=== PATIENT | male | born 1985 | race Caucasian/White ===

== ENCOUNTER 2016-03-04 15:57 | Emergency (ER) | payer SELFPAY ==
[2016-03-04 16:13] VITALS: BP 127/75
--- NOTE | 2016-03-04 17:31 | ERNOTE ---
Lower Extremity HPI - Narrative Date of Service: 03/04/16 - General Lower Extremities Pain: ankle: right Time Seen by Provider: 03/04/16 17:04 Source: patient Exam Limitations: no limitations - Immun/Allergies/Home Medications Immunizations: IMMUNIZATION HX Immunizations Up to Date Yes History of Influenza Vaccine No Hx Pneumococcal Vaccination No Allergies/Adverse Reactions: Allergies Allergy/AdvReac Type Severity Reaction Status Date / Time No Known Allergies Allergy Unverified 03/04/16 16:13 Home Medications: HOME MEDICATIONS NK [No Home Medication] 03/04/16 [Last Taken Unknown] - History of Present Illness Narrative: Pt. comes in with c/o R lateral ankle pain after he tripped and rolled his R ankle. Pt. denies any alleviating factors despite using ice for the pain and swelling. Pt. states that weight bearing exacerbates the pain. Pt. denies any numbness or tingling. Review of Systems - Review of Systems Constitutional: Present: no symptoms reported. Absent: recent illness, fever, chills, fatigue, malaise EYE: Present: no symptoms reported ENT: Present: no symptoms reported Respiratory: Present: no symptoms reported. Absent: shortness of breath, cough , wheezing Cardiology: Present: no symptoms reported. Absent: chest pain, palpitations, edema Gastrointestinal/Abdominal: Present: no symptoms reported Genitourinary: Present: no symptoms reported Musculoskeletal: Present: no symptoms reported, joint pain - R lateral ankle Skin: Present: no symptoms reported Neurological: Present: no symptoms reported. Absent: headache, dizziness/light- headedness, numbness, tingling All Other Systems: All systems neg except as marked - Patient's Past Medical History Patient History - Medical: No pertinent hx Patient History - Cancer: No Hx of Cancer Patient History - Surgical Procedures: No surgical history - Social History Living Situations: home Smoking Status: Never smoker Alcohol Use: none Drug Use: none Physical Exam - Physical Exam General Appearance: Present: wd/wn, alert, no apparent distress Eye Exam: Normal inspection: bilateral, PERRL: bilateral, EOMI: bilateral Respiratory: Present: no respiratory distress, normal breath sounds, no accessory muscle use, chest nontender, lungs clear Cardiovascular/Chest: Present: regular rate, rhythm, no murmur, normal peripheral pulses Back Exam: Present: normal inspection, normal range of motion, no CVA tenderness , no vertebral tenderness Extremity Exam: Present: no edema, decreased range of motion, joint swelling - R ankle, other - tender over lateral fibular Neurological Exam: Present: alert, oriented, normal mood/affect, no motor/ sensory deficits, 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 Vital Signs: Vital Signs 03/04/16 16:09 Temperature 36.6 C Pulse Rate 68 Respiratory 16 Rate Blood Pressure 127/75 O2 Sat by Pulse 99 Oximetry - X-Ray X-Ray #1 X-Ray: ankle Interpretation: Reviewed by me X-ray Comments: old fracture of the malleolus not where pt. has pain - Progress/Reassessment Chief Complaint: Ankle Injury/ Pain Progress:: Improved Departure Clinical Impression: Ankle sprain Qualifiers: Encounter type: initial encounter Involved ligament of ankle: calcaneofibular ligament Laterality: right Qualified Code(s): S93.411A - Sprain of calcaneofibular ligament of right ankle, initial encounter - Departure Disposition: Home self-care Condition: Good Instructions: RICE for Routine Care of Injuries, [id number] Additional Instructions: Please follow up with orthopedics doctor in 7-10 days if not improved. No weight bearing for 1 week. Referrals: Adam Anderson MD [Staff Physician] -
== END 2016-03-04 17:37 | disposition home or self-care (01) ==
LOC: ER 15:57
DX: S93.411A Sprain of calcaneofibular ligament of right ankle, initial encounter (principal); W01.0XXA Fall on same level from slipping, tripping and stumbling without subsequent striking against object, initial encounter

== ENCOUNTER 2016-04-07 22:09 | Emergency (ER) | payer SELFPAY ==
[2016-04-07 23:58] LABS: Hematocrit 43.7 % (42.0-52.0); Hemoglobin 14.5 gm/dL (13.5-18.0); Mean Cell Volume 83.9 fl (78-100); Mean Corpuscular Hemoglobin 27.8 pg (27-31); Mean Corpuscular Hgb Conc 33.2 g/dl (32-36); Mean Platelet Volume 9.8 fl (6.0-9.5); Neutrophil % 66.3 % (42-75.0); Platelet Count 300 K/mm3 (150-450); Red Blood Count 5.21 M/mm3 (4.7-6.0); Red Cell Distribution Width 12.5 % (11.5-14.0); White Blood Count 12.1 K/mm3 (4.0-10.5)
[2016-04-08 00:11] LABS: CRP 0.6 mg/dL (0.0-0.9); Uric Acid 7.4 mg/dL (2.6-7.2)
--- NOTE | 2016-04-08 00:20 | ERNOTE ---
Lower Extremity HPI - Narrative Date of Service: 04/08/16 - General Time Seen by Provider: 04/07/16 23:35 Source: patient Exam Limitations: no limitations - Immun/Allergies/Home Medications Immunizations: IMMUNIZATION HX Immunizations Up to Date Yes History of Influenza Vaccine No Hx Pneumococcal Vaccination No Allergies/Adverse Reactions: Allergies Allergy/AdvReac Type Severity Reaction Status Date / Time No Known Allergies Allergy Unverified 03/04/16 16:13 Home Medications: HOME MEDICATIONS Colchicine [Colcrys] 0.6 mg PO DAILY #10 tablet 04/08/16 [Last Taken Unknown] Indomethacin [Indocin] 50 mg PO TID #10 tab 04/08/16 [Last Taken Unknown] - History of Present Illness Narrative: swelling and redness and burning pain in left foot today Review of Systems - Review of Systems Constitutional: Present: no symptoms reported EYE: Present: no symptoms reported ENT: Present: no symptoms reported Respiratory: Present: no symptoms reported Cardiology: Present: no symptoms reported Musculoskeletal: Present: See HPI - Patient's Past Medical History Patient History - Medical: No pertinent hx Patient History - Cardiac/Respiratory: No pertinent hx Patient History - Cancer: No Hx of Cancer Patient History - Surgical Procedures: No surgical history Patient History - Other: None - Social History Living Situations: home Abuse History: No History of abuse Psych History: No pertinent hx Smoking Status: Former smoker Have you smoked in the past 12 months: No Do you dip or chew tobacco: No Alcohol Use: none Drug Use: meth - Immunizations Immunizations Up to Date: Yes Hx Pneumococcal Vaccination: No History of Influenza Vaccine: No Physical Exam - Physical Exam General Appearance: Present: wd/wn, alert, no apparent distress Respiratory: Present: no respiratory distress, normal breath sounds, no accessory muscle use, chest nontender Cardiovascular/Chest: Present: regular rate, rhythm, no murmur, normal peripheral pulses Extremity Exam: Present: other - The left foot is swollen and tender, red and hot to touch in dorsum of foot in medial aspect. No open lesions noted. Neurological Exam: Present: alert, normal mood/affect ED Progress - Results and Orders Patient's Lab Results:: I have reviewed the patient's lab results. - Vital Signs Patient's Vital Signs:: I have reviewed the patient's vital signs. Vital Signs: Vital Signs 04/07/16 04/07/16 22:29 23:15 Temperature 36.8 C 36.5 C Pulse Rate 101 H 78 Respiratory 18 20 Rate Blood Pressure 148/84 135/56 O2 Sat by Pulse 99 97 Oximetry - Progress/Reassessment Chief Complaint: Lower Extremity Pain/ Injury Plan - Plan Plan: Uric acid is elevated. pt has Gout Departure Clinical Impression: Gout Qualifiers: Gout site: foot Gout etiology: unspecified cause Laterality: left Chronicity: acute Qualified Code(s): M10.9 - Gout, unspecified - Departure Disposition: Home self-care Condition: Fair Instructions: Low-Purine Diet Prescriptions: Colchicine [Colcrys] 0.6 mg PO DAILY #10 tablet Indomethacin [Indocin] 50 mg PO TID #10 tab
[2016-04-08] MEDS ORDERED: COLCHICINE 0.6 MG TABLET PO ONE (00:22)
[2016-04-08] MEDS ORDERED: NAPROXEN SODIUM 550 MG TABLET PO ONE (00:23)
[2016-04-08] MEDS ORDERED: NAPROXEN SODIUM 550 MG TABLET ONE ×2 (00:24→00:29)
[2016-04-08] MEDS ORDERED: COLCHICINE 0.6 MG TABLET ONE ×2 (00:24→00:29)
[2016-04-08 00:45] VITALS: BP 136/70
== END 2016-04-08 00:30 | disposition home or self-care (01) ==
LOC: ER 22:09
DX: M10.9 Gout, unspecified (principal); Z87.891 Personal history of nicotine dependence

== ENCOUNTER 2016-06-14 10:28 | Emergency (ER) | payer SELFPAY ==
[2016-06-14] MEDS ORDERED: KETOROLAC TROMETHAMINE 60 MG/2 ML VIAL IM ONE ×2 (11:25→11:34)
--- NOTE | 2016-06-14 11:28 | ERNOTE ---
Lower Extremity HPI - Narrative Date of Service: 06/14/16 - General Lower Extremities Pain: foot: left, ankle: left Time Seen by Provider: 06/14/16 11:18 Source: patient, old records Exam Limitations: no limitations - Immun/Allergies/Home Medications Immunizations: IMMUNIZATION HX Immunizations Up to Date Yes History of Influenza Vaccine No Hx Pneumococcal Vaccination No Allergies/Adverse Reactions: Allergies Allergy/AdvReac Type Severity Reaction Status Date / Time No Known Allergies Allergy Unverified 03/04/16 16:13 Home Medications: HOME MEDICATIONS Colchicine 0.6 mg PO DAILY #3 capsule 06/14/16 [Last Taken Unknown] Indomethacin 50 mg PO TID #11 cap 06/14/16 [Last Taken Unknown] - History of Present Illness Narrative: 30 y/o male presents to the ED for left foot and ankle pain that began 4 days ago without incident. He has a history of gout in this extremity. He was recently seen here for the same problem. He does not have a PCP. He has not been taking anything for pain. Method of Injury: Reports: no apparent injury Prior Treament: Reports: recently seen, similar symptoms before Review of Systems - Review of Systems Constitutional: Absent: recent illness, fever, chills EYE: Present: no symptoms reported ENT: Present: no symptoms reported Respiratory: Present: no symptoms reported Cardiology: Absent: chest pain, edema, claudication Gastrointestinal/Abdominal: Absent: nausea, vomiting, abdominal pain Genitourinary: Present: no symptoms reported Musculoskeletal: Present: joint pain, joint swelling Skin: Present: lumps. Absent: rash, lesions Neurological: Absent: headache, dizziness/light-headedness Endocrine: Present: no symptoms reported Hematologic/Lymphatic: Present: no symptoms reported Psych: Present: no symptoms reported - Patient's Past Medical History Patient History - Medical: No pertinent hx Patient History - Cardiac/Respiratory: No pertinent hx Patient History - Cancer: No Hx of Cancer Patient History - Surgical Procedures: No surgical history Patient History - Other: None - Social History Living Situations: spouse Abuse History: No History of abuse Psych History: No pertinent hx Smoking Status: Never smoker Alcohol Use: none Drug Use: meth - Immunizations Immunizations Up to Date: Yes Hx Pneumococcal Vaccination: No History of Influenza Vaccine: No Physical Exam - Physical Exam General Appearance: Present: wd/wn, alert, no apparent distress, other - ambulating with crutches Respiratory: Present: no respiratory distress, normal breath sounds, no accessory muscle use, lungs clear Cardiovascular/Chest: Present: regular rate, rhythm, no murmur, normal peripheral pulses Peripheral Pulses: N=norm/S=strong/W=weak/B=bound/A=absent: Dorsalis-pedis (R): Strong, Dorsalis-pedis (L): Strong Extremity Exam: Present: normal except -, decreased range of motion - Left ankle , other - diffuse tenderness to left heel and posterior ankle, mild erythema and edema Neurological Exam: Present: alert, oriented, normal mood/affect, no motor/ sensory deficits Skin Exam: Present: warm/dry ED Progress - Vital Signs Patient's Vital Signs:: I have reviewed the patient's vital signs. Vital Signs: Vital Signs 06/14/16 10:42 Temperature 36.4 C L Pulse Rate 90 Respiratory 16 Rate Blood Pressure 148/95 O2 Sat by Pulse 99 Oximetry - Progress/Reassessment Chief Complaint: Ankle Injury/ Pain Progress:: Unchanged Departure Clinical Impression: Gout Qualifiers: Gout site: foot Gout etiology: unspecified cause Laterality: left Chronicity: acute Qualified Code(s): M10.9 - Gout, unspecified - Departure Disposition: Home Follow Up Needed Condition: Stable Instructions: Gout, [id number] Additional Instructions: Establish with a primary care provider for management of your gout - The clinic number is [phone] Prescriptions: Colchicine 0.6 mg PO DAILY #3 capsule Indomethacin 50 mg PO TID #11 cap
[2016-06-14 11:39] VITALS: BP 139/73
== END 2016-06-14 11:49 | disposition home or self-care (01) ==
LOC: ER 10:28
DX: M10.9 Gout, unspecified (principal)